=== PATIENT | female | born 1960 | race Caucasian/White ===

== ENCOUNTER 2022-02-07 02:25 | Day surgery (SDC) | payer BC, SELFPAY ==
[2022-01-13 10:40] VITALS: BMI 28.7
[2022-02-07 08:29] VITALS: BP 143/71; PULSE 79; RESP 20; TEMP 36.2; O2SAT 100
[2022-02-07] MEDS: LACTATED RINGERS 1,000 ML 150 ML IV CONT (08:41)
--- NOTE | 2022-02-07 09:09 | PM.IMHP ---
H&P: HPI History of Present Illness Date/Time: 02/07/22 09:09 Chief Complaint: Neoplasia screening. Narrative: This is a 61-year-old white female patient presents for screening colonoscopy. Patient's current weight appetite and bowel movements are normal. She denies abdominal pain. Patient reports having had an unremarkable colonoscopy 10 years ago. Patient presents today for screening colonoscopy she reports no blood in her stools. She denies abdominal pain. Her bowel habits are regular. Patient states that her son was identified as having ulcerative colitis. Review of Systems Review of Systems: Review of systems noncontributory. [facility] Past Medical History Medical History Cancer Hypertension Family History Family History Father Diabetes mellitus Mother Cerebrovascular accident Hypertension Diabetes mellitus Son Asthma Social History Social History Smoking status: Never smoker Second hand tobacco smoke exposure: No Alcohol intake: current Drinks per week: 2 Substance use: never Substance use type: does not use Living arrangements: with family Spiritual care concerns: No Meds Home Medications and Allergies Home Medications Medication Instructions Recorded Confirmed Type albuterol sulfate 90 mcg/actuation 1 puff inhalation Q4H PRN 01/05/22 01/13/22 History aerosol inhaler Shortness Of Breath Or Wheezing budesonide 90 mcg/actuation breath 1 inh inhalation Q12H 01/05/22 01/13/22 History activated powder inhaler (Pulmicort Flexhaler) calcium citrate malate-vitamin D3 1 tablet PO DAILY 01/05/22 01/13/22 History 500 mg-200 unit tablet lisinopril 10 mg tablet 10 mg PO DAILY 01/05/22 01/13/22 History montelukast 10 mg tablet 10 mg PO DAILY 01/05/22 01/13/22 History (Singulair) multivitamin (Daily Multi-Vitamin 1 tablet PO DAILY 01/05/22 01/13/22 History tablet) peg 3350-electrolytes 236 240 ml PO Q10M #4,000 mL 01/12/22 01/13/22 Rx gram-22.74 gram-6.74 gram-5.86 gram solution (Golytely) Allergies Allergy/AdvReac Type Severity Reaction Status Date / Time Penicillins Allergy Unknown Verified 02/07/22 08:28 Vital Signs Vital Signs - 24 hr 02/07/22 08:29 Temperature 97.2 F L Pulse Rate 79 Respiratory Rate 20 Blood Pressure 143/71 H Pulse Oximetry 100 Oxygen Delivery Room Air Exam Narrative: Physical exam reveals patient to be alert. Vital signs stable. HEENT exam is unremarkable. Patient is anicteric. Lungs are clear to auscultation and percussion. Heart is without murmur or extra sounds. Abdominal exam bowel sounds are present soft nontender with no organomegaly. Digital external rectal exam is normal. Assessment and Plan Assessment and plan (1) Encounter for screening colonoscopy: Code(s): Z12.11 - Encounter for screening for malignant neoplasm of colon Status: Acute Assessment and Plan: Patient presents for screening colonoscopy. Appears to be at average risk for colon polyps. Further recommendations will be given after endoscopy.
--- NOTE | 2022-02-07 09:22 | P.PNAN_ITS ---
Anes - Initial Pre Proc Eval Procedure: Operation Date: 02/07/22 10:00 Proposed Procedures p Screening Colonoscopy - Kike Fish MD Date/Time: 02/07/22 09:22 Surgeon: Kike Fish MD Pre Op Diagnosis: neoplasm screening Patient Data Age: 61 Gender: F Height: 1.55 m Weight: 70.9 kg Last Vital Signs Temp 97.2 F L 02/07/22 08:29 Pulse 79 02/07/22 08:29 Resp 20 02/07/22 08:29 BP 143/71 H 02/07/22 08:29 Pulse Ox 100 02/07/22 08:29 O2 Del Method Room Air 02/07/22 08:29 Allergies Allergy/AdvReac Type Severity Reaction Status Date / Time Penicillins Allergy Unknown Verified 02/07/22 08:28 Home Medications Medication Instructions Recorded Confirmed Type albuterol sulfate 90 mcg/actuation 1 puff inhalation Q4H PRN 01/05/22 01/13/22 History aerosol inhaler Shortness Of Breath Or Wheezing budesonide 90 mcg/actuation breath 1 inh inhalation Q12H 01/05/22 01/13/22 History activated powder inhaler (Pulmicort Flexhaler) calcium citrate malate-vitamin D3 1 tablet PO DAILY 01/05/22 01/13/22 History 500 mg-200 unit tablet lisinopril 10 mg tablet 10 mg PO DAILY 01/05/22 01/13/22 History montelukast 10 mg tablet 10 mg PO DAILY 01/05/22 01/13/22 History (Singulair) multivitamin (Daily Multi-Vitamin 1 tablet PO DAILY 01/05/22 01/13/22 History tablet) peg 3350-electrolytes 236 240 ml PO Q10M #4,000 mL 01/12/22 01/13/22 Rx gram-22.74 gram-6.74 gram-5.86 gram solution (Golytely) Patient hx anesthesia problems: none Family hx anesthesia problems: none Results Review: All pre-operative results and documents have been reviewed as part of the pre- operative evaluation. [facility] Past Medical History Medical History Cancer Hypertension Family History Family History Father Diabetes mellitus Mother Cerebrovascular accident Hypertension Diabetes mellitus Son Asthma Social History Social History Smoking status: Never smoker Second hand tobacco smoke exposure: No Alcohol intake: current Drinks per week: 2 Substance use: never Substance use type: does not use Living arrangements: with family Spiritual care concerns: No Anes - Eval Final PreProcedure Day of Procedure 02/07/22 09:22 Patient weight: overweight Heart: regular rate and rhythm Lungs: clear to auscultation Airway: Mallampati scale class II Neurological: alert and oriented Last oral intake: >/= 8 hours ASA classification: III Emergent: no Anesthetic plan: proceed Anesthesia type and monitoring: general GIVS and standard monitoring Results Review: All pre-operative results and documents have been reviewed as part of the pre- operative evaluation. Informed Consent: The patient's anesthetic plan and its attendant risks and benefits were discussed with the patient/family/POA. Questions were solicited and answers provided to the satisfaction of the patient/family/POA.
[2022-02-07 09:45] VITALS: BP 112/59; PULSE 78; RESP 20; O2SAT 99
[2022-02-07 09:55] VITALS: BP 109/55; PULSE 75; RESP 14; O2SAT 99
[2022-02-07 10:05] VITALS: BP 129/60; PULSE 75; RESP 18; O2SAT 100
== END 2022-02-07 10:14 | disposition home or self-care (01) ==
PROVIDERS: PCP Physician Assistant; Visit Provider Internal Medicine Gastroenterology
PROC: 0DJD8ZZ Inspection of Lower Intestinal Tract, Via Natural or Artificial Opening Endoscopic (ICD-10-PCS; CPT 45378; principal; 2022-02-07 10:00)
DX: Z12.11 Encounter for screening for malignant neoplasm of colon (principal); Z79.51 Long term (current) use of inhaled steroids; I10 Essential (primary) hypertension
CPT/HCPCS: 45378; J2704; J7120

== ENCOUNTER 2022-03-28 09:00 | Outpatient (RCR) | payer BC, SELFPAY ==
--- NOTE | 2022-03-03 11:25 | PTOPEVAL1 ---
Evaluation Information Assessment Status Evaluation Diagnosis L UE lymphedema Onset December 2021 Subjective Information Annalee reports: recently noticed more swelling of forearm and hardness of skin; wears her compression gauntlet and night garment to control lymphedema, and does her self massage. Needs a new compression garment and wants an update on any new lymphedema care or treatment techniques. Reported Pain Level Pain Score 0: Self Report Additional Pain Score Comments numbness in L axillary area Assessment PT Clinical Summary Annalee has the diagnosis of L UE lymphedema. She has had treatment in the past, s/p L breast cancer , with total mastectomy, reconstructive surgery and chemotherapy. She has a good understanding of her diagnosis and self care, but has more firmness of forearm and sought additional care. With the evaluation, she has tissue changes over L elbow and forearm and needs remeasured for a new garment. She is also interested in obtaining a home intermittent compression pump. She has good strength and ROM of L UE. Skilled PT lymphedema treatment is indicated for manual therapy, manual lymph drainage and further educate on self care and recommendation for a new compression garment and assist with obtaining a home intermittent compression pump. Plan of Care Interventions Intermittent Compression,Manual Lymph Drainage, Manual Therapy,Patient/Caregiver Education,Self-Care /Home Management PT Services Indicated Yes Treatment Frequency and 2x/wk for 3 weeks Duration These treatments will address the objective and functional deficits as defined above. The patient will be advanced safely and appropriately in order for the patient to progress towards his/her prior level of function. Additional exercises will be introduced and as well as a comprehensive home exercise program upon discharge, if needed, ?to ensure carryover of functional gains achieved in the clinic. This treatment plan has been reviewed and agreement upon by the patient.
--- NOTE | 2022-03-03 11:47 | PCPTNOTE ---
pt signed consent for release of info, faxed eval and registration sheet to [facility] for insurance authorization for home intermittent compression pump.
--- NOTE | 2022-03-28 09:50 | PTOPDC ---
Assessment and note entered by Arminda Raymundo, PT Evaluation Information Assessment Status Discharge Diagnosis L UE lymphedema Onset December 2021 Subjective Information Annalee reports: have ordered sleeve, but not here yet; awaiting on the home pump; ready for discharge from therapy; Reported Pain Level Pain Score 0: Self Report Assessment PT Clinical Summary Annalee has received 8 PT sessions, for lymphedema of L UE. She has improved with: less fibrotic tissue over anterior forearm; L UE circumferential measurement is with in .2 cm of her R arm; she been measured for a new compression sleeve with gauntlet, but it has not yet arrived---[employer] [place]- sleeve and gauntlet, 20-30 mmHg, size 2; in the process of getting insurance authorization for home intermittent compression pump to assist with managing her chronic lymphedema; she is independent with her home exercises and fitness activity for UE; indep with self MLD; practices healthy lifestyle with exercises, good rest, proper nutrition. Discharge PT services. Plan of Care PT Services Indicated No
== END 2022-03-28 11:40 | disposition home or self-care (01) ==
LOC: ANHPT 09:00
PROVIDERS: PCP Physician Assistant; Referring Provider Physician Assistant; Visit Provider Physician Assistant
DX: I89.0 Lymphedema, not elsewhere classified (principal)
CPT/HCPCS: 97016; 97140; 97161

== ENCOUNTER 2024-05-07 07:51 | Outpatient (CLI) | payer MEDICARE, SELFPAY ==
--- NOTE | ~2024-05-07 | DEXA_ITS ---
Bone Density Report Name: JACINTO MANTILLA Age: 64 Sex: Female Ethnicity: White Date of : 1960 Indication: postmenopausal; screening for osteoporosis; cancer; asthma or emphysema; Referring Provider: JEANINE, TREVON Allen Study: Bone densitometry was performed. Exam Date: May 07, 2024 Accession number: [id number] Bone Density: Region BMD T-score Z-score Classification AP Spine(L1-L4) 1.323 2.5 4.4 Normal Femoral Neck (Left) 0.796 -0.5 1.1 Normal Total Hip (Left) 0.946 0.0 1.3 Normal Femoral Neck (Right) 0.785 -0.6 1.0 Normal Total Hip (Right) 0.902 -0.3 1.0 Normal Total Hip Mean 0.924 -0.2 1.2 Normal World Health Organization criteria for BMD impression classify patients as: Normal (T-score at or above -1.0), Osteopenia (T-score between -1.0 and -2.5), or Osteoporosis (T-score at or below -2.5). 10-year Fracture Risk: FRAX not reported because: All T-scores for Spine Total, Hip Total, Femoral Neck at or above -1.0 Clinical Information Provided by Patient: Has used the following medications: Vitamin D, Calcium Has the following medical conditions: Asthma or Emphysema, Cancer Patient maximum height was 60.5 Menopause Age: 50 Drinks caffeinated beverages Onset of menses at age 10 Number of children 2 Impression: The patient has normal bone mass. Discussion: BONE DENSITY IS ABOVE THE MINIMUM DESIRABLE LEVEL AT ALL SKELETAL SITES TESTED. This patient?s bone mineral density is above the minimum desirable level (T-score -1.0 or better) at all sites measured. The patient should follow a healthful lifestyle (good nutrition with adequate calcium and vitamin D, and appropriate weight-bearing exercise). Follow-Up: Consider repeating this study in 5 years or sooner if there is some new clinical indication. Reported by: ARIN on 05/07/2024 8:31:00 AM. Reviewed, dictated and finalized at location Regla SANCHEZ
== END 2024-05-07 07:52 | disposition home or self-care (01) ==
LOC: ANHIMG 07:52
PROVIDERS: PCP Physician Assistant; Visit Provider Physician Assistant
DX: Z78.0 Asymptomatic menopausal state (principal)
CPT/HCPCS: 77080